=== PATIENT | female | born 1950 | race Caucasian/White ===

== ENCOUNTER → 2025-03-18 10:49 | Outpatient (REF) | payer MEDICARE, OTHER, SELFPAY ==
[2025-03-18 16:40] LABS: Body Fluid Mononuclear 54.5 %; Body Fluid Polymorphonuclear 45.5 %; Body Fluid WBC 11650 /CUMM
[2025-03-18 16:49] LABS: Body Fluid Second Tech DW
== END ==
LOC: CLAB 10:49
PROVIDERS: ATTENDING PHYSICIAN Student in an Organized Health Care Education/Training Program
DX: M67.40 Ganglion, unspecified site (principal)
CPT/HCPCS: 87015; 87070; 87075; 87205; 89051; 89060